=== PATIENT | male | born 1960 | race Caucasian/White ===

== ENCOUNTER 2024-04-07 18:40 | Inpatient (IN) | payer OTHER ==
[~2024-04-07] VITALS: Ht 182.9 cm; Wt 99.0 kg
[2024-04-07 19:05] LABS: BASOPHILS ABSOLUTE AUTO 0.04 K/mm3 (0.00-0.23); BASOPHILS PERCENT AUTO 0 % (0-2); EOSINOPHILS PERCENT AUTO 0 % (0-6); Hematocrit 42.3 % (37.0-53.0); Hemoglobin 15.6 g/dL (13.5-17.5); IMMATURE GRAN ABSOLUTE AUTO 0.08 K/mm3 (0.00-0.10); IMMATURE GRAN PERCENT AUTO 0 % (0-1); LYMPHOCYTES ABSOLUTE AUTO 0.36 K/mm3 (0.84-5.20); LYMPHOCYTES PERCENT AUTO 2 % (21-46); MONOCYTES ABSOLUTE AUTO 0.83 K/mm3 (0.16-1.47); MONOCYTES PERCENT AUTO 4 % (4-13); Mean Corpuscular HGB 34.3 pg (26.0-34.0); Mean Corpuscular HGB Conc 36.9 g/dL (31.5-36.5); Mean Corpuscular Volume 93 fL (80-100); Mean Platelet Volume 9.6 fL (9.1-12.4); NEUTROPHILS ABSOLUTE AUTO 17.37 K/mm3 (1.96-9.15); NEUTROPHILS PERCENT AUTO 93 % (41-73); Platelet Count 247 K/mm3 (150-400); RDW Coefficient Variation 12.4 % (11.7-14.2); RDW Standard Deviation 42.6 fL (35.1-46.3); Red Blood Cell Count 4.55 M/mm3 (4.30-5.90); White Blood Cell Count 18.68 K/mm3 (4.00-11.30)
[2024-04-07 19:26] LABS: Albumin, Blood 3.8 g/dL (3.4-5.0); Albumin/Globulin Ratio 1.2 (0.8-1.8); Bilirubin, Total 1.1 mg/dL (0.1-1.0); Bun/Creatinine Ratio 30.3 (12.0-20.0); Calcium, Blood 9.1 mg/dL (8.5-10.1); Creatinine, Blood 0.89 mg/dL (0.60-1.20); Globulin, Blood 3.3 g/dL (2.2-4.0); Potassium, Blood 3.1 mmol/L (3.5-5.5); Total Protein, Blood 7.1 g/dL (6.4-8.2)
[2024-04-07] MEDS ORDERED: FentaNYL Citrate 50 MCG/ML 2 ML Injection IV PRN (21:50)
[2024-04-07] MEDS ORDERED: Ondansetron HCl 2 MG / ML 2ML Vial IV PRN (21:55)
[2024-04-07] MEDS ORDERED: NS 1,000 ML IV ONE (21:55)
[2024-04-07] MEDS ORDERED: FLU VACC TS2024-25(6MOS UP)/PF 45 MCG/0.5 ML SYRINGE IM ONE (21:55)
[2024-04-07 22:52] VITALS: BP 161/89
[2024-04-08 04:02] VITALS: BP 155/86
[2024-04-08] MEDS ORDERED: Potassium Chl 20MEQ/Water100ML 100 ML IV SCH ×2 (04:05→08:20)
[2024-04-08 04:10] LABS: BASOPHILS ABSOLUTE AUTO 0.02 K/mm3 (0.00-0.23); BASOPHILS PERCENT AUTO 0 % (0-2); EOSINOPHILS PERCENT AUTO 0 % (0-6); Hematocrit 37.1 % (37.0-53.0); Hemoglobin 13.7 g/dL (13.5-17.5); IMMATURE GRAN ABSOLUTE AUTO 0.05 K/mm3 (0.00-0.10); IMMATURE GRAN PERCENT AUTO 0 % (0-1); LYMPHOCYTES ABSOLUTE AUTO 0.69 K/mm3 (0.84-5.20); LYMPHOCYTES PERCENT AUTO 5 % (21-46); MONOCYTES ABSOLUTE AUTO 0.89 K/mm3 (0.16-1.47); MONOCYTES PERCENT AUTO 7 % (4-13); Mean Corpuscular HGB 35.6 pg (26.0-34.0); Mean Corpuscular HGB Conc 36.9 g/dL (31.5-36.5); Mean Corpuscular Volume 96 fL (80-100); Mean Platelet Volume 9.8 fL (9.1-12.4); NEUTROPHILS ABSOLUTE AUTO 12.04 K/mm3 (1.96-9.15); NEUTROPHILS PERCENT AUTO 88 % (41-73); Platelet Count 206 K/mm3 (150-400); Red Blood Cell Count 3.85 M/mm3 (4.30-5.90); White Blood Cell Count 13.69 K/mm3 (4.00-11.30)
[2024-04-08 04:35] LABS: Albumin, Blood 3.2 g/dL (3.4-5.0); Albumin/Globulin Ratio 1.2 (0.8-1.8); Bun/Creatinine Ratio 29.1 (12.0-20.0); Calcium, Blood 8.2 mg/dL (8.5-10.1); Creatinine, Blood 0.89 mg/dL (0.60-1.20); Globulin, Blood 2.6 g/dL (2.2-4.0); Potassium, Blood 3.2 mmol/L (3.5-5.5); Total Protein, Blood 5.8 g/dL (6.4-8.2)
--- NOTE | 2024-04-08 05:04 | NUR ---
SHIFT SUMMARY PT ARRIVED TO UNIT AT 2300 04/07/24. REPORTS PAIN 07/19. DENIES NAUSEA. AMB INDEPENDENTLY. VOIDING. PT ABLE TO REST DURING SHIFT. PT VOICED UNDERSTANDING OF PLAN OF CARE, DENIES QUESTIONS/CONCERNS AT THIS TIME. EXPRESSED MOTIVATION TO DISCHARGE TO PARTICIPATE IN BICYCLING EVENT HE IS IN TOWN FROM [place] FOR WITH HIS FRIENDS.
[2024-04-08 07:21] VITALS: BP 157/86
[2024-04-08 14:25] VITALS: BP 171/97
[2024-04-08] MEDS ORDERED: HYDCHL50 PO (14:39)
[2024-04-08] MEDS ORDERED: LOSA50 PO (14:40)
[2024-04-08] MEDS ORDERED: NIFE30ER PO (14:41)
[2024-04-08] MEDS ORDERED: METO25ER PO (14:41)
[2024-04-08] MEDS ORDERED: ELIQUIS5 M2 PO (14:42)
[2024-04-08] MEDS ORDERED: DOXE50 PO (14:42)
[2024-04-08] MEDS ORDERED: GABA300 PO (14:42)
[2024-04-08] MEDS ORDERED: NIFEdipine 30 MG TabCR PO SCH (16:00)
[2024-04-08] MEDS ORDERED: Losartan Potassium 50 MG Tab PO SCH (16:00)
--- NOTE | 2024-04-08 17:58 | NUR ---
SHIFT SUMMARY NO ACUTE EVENTS TODAY. A&O X4. DIET ADVANCED TO CLEAR LIQUIDS. TOLERATING WELL, DENIES N/V. STATED HE HAD A COUPLE SMALL WATERY/SOFT STOOLS THIS MORNING. WALKED HALLWAY THIS AFTERNOON INDEPENDENTLY. EAGER TO D/C. VSS.
[2024-04-08 19:45] VITALS: BP 169/98
[2024-04-08] MEDS ORDERED: HydroCHLOROthiazide 25 mg Tab PO ONE (20:00)
[2024-04-08] MEDS ORDERED: Gabapentin 300 MG Cap PO SCH (21:00)
[2024-04-08] MEDS ORDERED: Doxepin HCL 50 MG CAP PO SCH (21:00)
--- NOTE | 2024-04-09 04:11 | NUR ---
SHIF SUMMARY BRIANNE WAS ALERT AND FULLY ORIENTED ON ASSESMENT. PT DISCOMFORT EASILY CONTROLLED. PT INDEPENDENT IN ROOM, NO NEW COMPLAINTS, NO ACUTE EVENTS. PT STILL RUNNING HYPERTENSIVE, DR NOTIFIED MEDS ADJUSTED. PT HAD UNEVENTFUL NIGHT, CURRENTLY RESING IN BED WITH CALL LIGHT IN REACH , CALLS APPROPRIATELY.
[2024-04-09 04:31] VITALS: BP 142/89
[2024-04-09 07:25] VITALS: BP 146/92
[2024-04-09] MEDS ORDERED: HydroCHLOROthiazide 25 mg Tab PO SCH (09:00)
[2024-04-09] MEDS ORDERED: Metoprolol Succinate 25 MG TABCR PO SCH (09:00)
[2024-04-09] MEDS ORDERED: OXYC5 PO (12:27)
--- NOTE | 2024-04-09 16:27 | NUR ---
Pt walked out to hospital enterance where his ride is picking him up. VSS. Eating/drinking/voiding and having bowel movements without any issues. Verbally acknowledged understanding of discharge teaching. Pain managed to tolerable level.
== END 2024-04-09 16:16 | disposition home or self-care (01) | DRG 390 ==
LOC: ER 18:40 → SURS 21:49
PROVIDERS: Student in an Organized Health Care Education/Training Program; ADMIT Internal Medicine
DX: K56.609 Unspecified intestinal obstruction, unspecified as to partial versus complete obstruction (principal); E87.6 Hypokalemia; Z85.038 Personal history of other malignant neoplasm of large intestine; Z93.2 Ileostomy status; Z85.46 Personal history of malignant neoplasm of prostate; Z28.21 Immunization not carried out because of patient refusal; Z79.899 Other long term (current) drug therapy
CPT/HCPCS: 36415; 74177; 80053; 83605; 83690; 83880; 84484; 85025; 93005; 93010; 96374-59; 96375; 99285-25; A9270; J2405; J3010; J3480; J7030; Q9967